=== PATIENT | female | born 1960 | race Two or more races ===

== ENCOUNTER → 2018-05-11 | Day surgery (SDC) | payer OTHER ==
[~2018-05-11] MED LIST: LIDOCAINE 2% PF Vial for OR 5 ML VIAL.; PROPOFOL 40 ML IV
[2018-05-11] MEDS: IV RINGERS,LACTATED 1000ML 1,000 ML IV (11:08)
[2018-05-11 11:13] LABS: POC GLUCOSE 120 mg/dL (70-99)
[2018-05-11 11:13] LABS: POC GLUCOSE 109 mg/dL (70-99)
== END | disposition home or self-care (01) ==
LOC: ENDOS 10:32
DX: Z12.11 Encounter for screening for malignant neoplasm of colon (principal); I10 Essential (primary) hypertension; J45.909 Unspecified asthma, uncomplicated; E78.00 Pure hypercholesterolemia, unspecified; F32.9 Major depressive disorder, single episode, unspecified; F41.9 Anxiety disorder, unspecified; E11.42 Type 2 diabetes mellitus with diabetic polyneuropathy; E11.39 Type 2 diabetes mellitus with other diabetic ophthalmic complication; H40.9 Unspecified glaucoma; M19.90 Unspecified osteoarthritis, unspecified site; M06.9 Rheumatoid arthritis, unspecified; Z98.890 Other specified postprocedural states; Z79.899 Other long term (current) drug therapy; E88.81 Metabolic syndrome and other insulin resistance; I20.9 Angina pectoris, unspecified; Z79.4 Long term (current) use of insulin; Z79.82 Long term (current) use of aspirin; Z79.84 Long term (current) use of oral hypoglycemic drugs; Z88.8 Allergy status to other drugs, medicaments and biological substances; Z86.010 Personal history of colon polyps; K50.90 Crohn's disease, unspecified, without complications; E66.9 Obesity, unspecified; Z96.651 Presence of right artificial knee joint; F17.200 Nicotine dependence, unspecified, uncomplicated; Z82.49 Family history of ischemic heart disease and other diseases of the circulatory system; Z83.3 Family history of diabetes mellitus; Z81.8 Family history of other mental and behavioral disorders; Z80.0 Family history of malignant neoplasm of digestive organs
CPT/HCPCS: 45378; 82962; J2001; J2704

== ENCOUNTER → 2018-05-25 | Day surgery (SDC) | payer OTHER ==
[~2018-05-25] MED LIST changes: +IV RINGERS,LACTATED 1000ML 1,000 ML IV; +LIDOCAINE 1% PF 2 ML VIAL. ID; +MIDAZOLAM HCL/PF 2 MG/2 ML VIAL. IV; +fentaNYL PF VIAL 100 MCG/2 ML VIAL IV
[2018-05-25] MEDS: IV RINGERS,LACTATED 1000ML 1,000 ML IV (07:32)
== END | disposition home or self-care (01) ==
LOC: ENDOS 07:00
DX: Z12.11 Encounter for screening for malignant neoplasm of colon (principal); I10 Essential (primary) hypertension; F32.9 Major depressive disorder, single episode, unspecified; E11.42 Type 2 diabetes mellitus with diabetic polyneuropathy; Z86.010 Personal history of colon polyps; E78.00 Pure hypercholesterolemia, unspecified; J45.909 Unspecified asthma, uncomplicated; K50.90 Crohn's disease, unspecified, without complications; E66.9 Obesity, unspecified; F41.9 Anxiety disorder, unspecified; E11.39 Type 2 diabetes mellitus with other diabetic ophthalmic complication; E11.65 Type 2 diabetes mellitus with hyperglycemia; H40.9 Unspecified glaucoma; Z85.038 Personal history of other malignant neoplasm of large intestine; E88.81 Metabolic syndrome and other insulin resistance; M19.90 Unspecified osteoarthritis, unspecified site; Z98.890 Other specified postprocedural states; Z79.82 Long term (current) use of aspirin; M06.89 Other specified rheumatoid arthritis, multiple sites; G89.29 Other chronic pain; Z79.899 Other long term (current) drug therapy; Z79.84 Long term (current) use of oral hypoglycemic drugs; Z87.891 Personal history of nicotine dependence; Z82.49 Family history of ischemic heart disease and other diseases of the circulatory system; Z83.3 Family history of diabetes mellitus; Z80.0 Family history of malignant neoplasm of digestive organs; Z81.8 Family history of other mental and behavioral disorders; Z79.4 Long term (current) use of insulin; Z96.651 Presence of right artificial knee joint; Z88.8 Allergy status to other drugs, medicaments and biological substances
CPT/HCPCS: 45378; G0105; J2001; J2704

== ENCOUNTER 2020-11-17 16:24 | Emergency (ER) | payer OTHER, MEDICAID ==
[~2020-11-17] VITALS: Ht 175.3 cm; Wt 104.0 kg
[~2020-11-17 16:24] MED LIST changes: +ATEN-56 PO; +ATEN25TA PO; +BRIM5DRO3 EACHEYE; +BUSP10TA PO; +CELE200C PO; +CLON-77 PO; +DORZ10DR21 EACHEYE; +ESTR1TAB5 PO; +ESTR1TAB76 PO; +FOLI1TAB16 PO; +HYDR-2765 PO; +HYDR200T71 PO; +INSU100I18 SQ; -IV RINGERS,LACTATED 1000ML 1,000 ML IV; -LIDOCAINE 1% PF 2 ML VIAL. ID; -LIDOCAINE 2% PF Vial for OR 5 ML VIAL.; +LISI2.5T PO; +LISI5TAB PO; +MECL25TA PO; +METF500T PO; +METF500T16 PO; -MIDAZOLAM HCL/PF 2 MG/2 ML VIAL. IV; +PARO20TA99 PO; +PARO40TA61 PO; +PREG-9 PO; +PREG150C PO; -PROPOFOL 40 ML IV; +SIMV10TA PO; +SULF500T7 PO; +TRAM-48 PO; +TRAM50TA PO; +TRAV5DRO EACHEYE; +TRAV5DRO OP; +WARF3TAB50 PO; +WARF5TAB2 PO; +ZOLP10TA4 PO; -fentaNYL PF VIAL 100 MCG/2 ML VIAL IV
[2020-11-17] MEDS ORDERED: LIDOCAINE (700MG/PATCH) PATCH. TD ONE (16:51)
--- NOTE | 2020-11-17 17:51 | RAD ---
EXAM: Right humerus, 2 views. HISTORY: Pain. COMPARISON: None. FINDINGS: 2 views of the right humerus are obtained. There is fracture, dislocation or subluxation. T here is no lytic or sclerotic osseous lesion. 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 IMPRESSION: No acute osseous finding. Electronically signed by: Luciana Pool MD (11/17/2020 5:38 PM) [facility]
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
[2020-11-17 18:27] VITALS: BP 157/114
[2020-11-17] MEDS ORDERED: DOCU-109 PO (18:44)
[2020-11-17] MEDS ORDERED: HYDR-2761 PO (18:44)
[2020-11-17] MEDS ORDERED: LIDO1ADH78 TP (18:44)
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
[2020-11-17] MEDS ORDERED: DIPH,PERTUSS(ACELL),TET VAC/PF 0.5 ML SYRINGE. VAX IM ONE (19:00)
== END 2020-11-17 19:15 | disposition home or self-care (01) ==
LOC: ER 16:24
DX: S22.31XA Fracture of one rib, right side, initial encounter for closed fracture (principal); S40.811A Abrasion of right upper arm, initial encounter; S40.812A Abrasion of left upper arm, initial encounter; E10.39 Type 1 diabetes mellitus with other diabetic ophthalmic complication; I11.9 Hypertensive heart disease without heart failure; Z87.891 Personal history of nicotine dependence; Z88.8 Allergy status to other drugs, medicaments and biological substances; V49.59XA Passenger injured in collision with other motor vehicles in traffic accident, initial encounter; Y92.488 Other paved roadways as the place of occurrence of the external cause; Y93.89 Activity, other specified; Y99.8 Other external cause status
CPT/HCPCS: 70450; 71250; 72125; 73060; 90471; 90715; 99285-25